=== PATIENT | female | born 1980 | race Caucasian/White ===

== ENCOUNTER 2016-05-15 23:26 | Emergency (ER) | payer OTHER ==
[~2016-05-15] VITALS: Ht 167.6 cm; Wt 68.5 kg
[~2016-05-15 23:26] MED LIST: ALPRAZOLAM0.5 MG PO; AMBIEN5 MG PO; AMOXICILLIN500 MG PO; CIPRO500 MG PO; CLINDAMYCIN HC300 MG PO; DIFLUCAN150 MG PO; FLEXERIL10 MG PO; LANTUS 10100 UNITS/ SC; LEVEMIR100 UNIT/2 SC; LEXAPRO10 MG PO; METHADONE1 MG/1 ML PO; METHADONE10 MG/1 M1 PO; METRONIDAZOLE500 MG PO; MOBIC7.5 MG PO; MOTRIN800 MG PO; NAPROSYN500 MG PO; NICOTINE PATCH1 EAC2 TD; NOVOLIN,HU100 UNITS/ SC; NOVOLOG 10100 UNITS/ SC; NOVOLOG PE100 UNITS/ SC; PERCOCET 5/31 TABLET PO; SUBOXONE 8 MG-1 EAC2 SL; TOUJEO SOL300 UNIT/1 SC; TYLENOL EXTRA500 MG PO; TYLENOL WITH C1 EACH PO; ULTRAM50 MG PO; VALIUM5 MG PO; VENTOLIN HFA18 GM IH; VICOPROFEN1 TABLET PO
[2016-05-15 23:38] VITALS: BP 127/86
[2016-05-16 10:32] LABS: POINT-OF-CARE METER ID UU13113778
== END 2016-05-16 00:16 | disposition left against medical advice (07) ==
LOC: EME 23:26
PROVIDERS: Nurse Practitioner Family
DX: E11.65 Type 2 diabetes mellitus with hyperglycemia (principal); Z53.21 Procedure and treatment not carried out due to patient leaving prior to being seen by health care provider; F17.200 Nicotine dependence, unspecified, uncomplicated
CPT/HCPCS: 80048; 82948; 85027

== ENCOUNTER 2016-06-07 05:02 | Emergency (ER) | payer OTHER ==
[~2016-06-07] VITALS: Ht 167.6 cm; Wt 78.3 kg
[2016-06-07 05:20] LABS: POINT-OF-CARE METER ID UU13113702
[2016-06-07 05:53] LABS: HEMATOCRIT 39.9 % (36.0-46.0); MCH 27.3 PG (29.0-34.0); MCHC 32.8 G/DL (30.0-36.0); MCV 83.3 FL (83-99); MEAN PLAT.VOLUME 9.4 uM^3 (9.5-12.4); PLATELET COUNT 294 K/uL (156-360); RBC DIS.WIDTH-CV 14.2 % (11.8-14.6); RBC DIS.WIDTH-SD 42.3 % (39-53); RED BLOOD COUNT 4.79 M/uL (3.80-5.20)
[2016-06-07 06:06] LABS: CHLORIDE 109 mEq/L (99-109); SODIUM 138 mEq/L (136-147)
[2016-06-07 06:07] LABS: GLUCOSE 212 mg/dL (70-99)
[2016-06-07 06:09] LABS: ANION GAP 9 MEQ/L (2-14)
[2016-06-07 06:11] LABS: GFR ESTIMATE (CALCULATED) > 59 mL/min/
[2016-06-07 06:12] LABS: UREA NITROGEN (BUN) 16 mg/dL (9-23)
[2016-06-07 07:16] VITALS: BP 131/71
== END 2016-06-07 07:43 | disposition home or self-care (01) ==
LOC: EME → EDBD 05:02 → EME 07:43
PROVIDERS: Emergency Medicine
DX: E10.649 Type 1 diabetes mellitus with hypoglycemia without coma (principal); Z79.4 Long term (current) use of insulin; F17.200 Nicotine dependence, unspecified, uncomplicated; F11.99 Opioid use, unspecified with unspecified opioid-induced disorder
CPT/HCPCS: 80048; 82948; 85027; 99281; 99285

== ENCOUNTER 2016-07-13 10:43 | Emergency (ER) | payer OTHER ==
[~2016-07-13] VITALS: Ht 167.6 cm; Wt 75.0 kg
[2016-07-13] MEDS ORDERED: CLEOCIN300 MG PO (12:07)
[2016-07-13 12:30] VITALS: BP 134/75
== END 2016-07-13 12:35 | disposition home or self-care (01) ==
LOC: EME 10:43
PROC: 0Y9K3ZZ Drainage of Right Ankle Region, Percutaneous Approach (ICD-10-PCS; principal; 2016-07-13)
DX: L02.415 Cutaneous abscess of right lower limb (principal); L03.115 Cellulitis of right lower limb; E11.9 Type 2 diabetes mellitus without complications; Z79.4 Long term (current) use of insulin; Z86.14 Personal history of Methicillin resistant Staphylococcus aureus infection; F17.200 Nicotine dependence, unspecified, uncomplicated
CPT/HCPCS: 99281; 99284

== ENCOUNTER 2016-08-02 11:49 | Inpatient (IN) | payer OTHER ==
[2016-08-02] VITALS (8 sets, daily range): BP systolic 127–143; BP diastolic 53–78
[~2016-08-02] VITALS: Ht 167.6 cm; Wt 61.2 kg
[~2016-08-02 11:49] MED LIST changes: +CLEOCIN300 MG PO
[2016-08-02 12:35] LABS: HEMATOCRIT 50.9 % (36.0-46.0); MCH 26.2 PG (29.0-34.0); MCHC 30.1 G/DL (30.0-36.0); MCV 87.3 FL (83-99); PLATELET COUNT 620 K/uL (156-360); RBC DIS.WIDTH-CV 13.4 % (11.8-14.6); RBC DIS.WIDTH-SD 43.1 % (39-53); RED BLOOD COUNT 5.83 M/uL (3.80-5.20); VENOUS PCO2 < 19 mm Hg (41-51); WHITE BLOOD COUNT 22.1 K/uL (4.1-10.2)
[2016-08-02 12:45] LABS: CHLORIDE 96 mEq/L (99-109); SODIUM 131 mEq/L (136-147)
[2016-08-02 12:47] LABS: POTASSIUM 6.7 mEq/L (3.7-5.4)
[2016-08-02 12:48] LABS: ANION GAP 33 MEQ/L (2-14); GLUCOSE 711 mg/dL (70-99)
[2016-08-02 12:51] LABS: GFR ESTIMATE (CALCULATED) 23 mL/min/
[2016-08-02 12:52] LABS: UREA NITROGEN (BUN) 27 mg/dL (9-23)
[2016-08-02 12:53] LABS: CARBON DIOXIDE (BICARBONATE) < 5.0 mEq/L (20-31)
[2016-08-02 13:38] LABS: Estimated Average Glucose 326 mg/dL (70-123)
[2016-08-02 13:55] LABS: ADD MIUA? YES; BILIRUBIN NEGATIVE; BLOOD SMALL; COLOR STRAW ((YELLOW)); GLUCOSE (STRIP) >=500; KETONES 80; LEUKOCYTES NEGATIVE; NITRITE NEGATIVE; PROTEIN (STRIP) 100; SPECIFIC GRAVITY 1.016 (1.000-1.030); UROBILINOGEN 0.2 MG/DL (0.2-1.0)
[2016-08-02 14:21] LABS: BACTERIA RARE /HPF; EPITHELIAL CELLS RARE /HPF; HYALINE CASTS 0-5 /LPF; MUCUS TRACE /LPF; RED BLOOD CELLS 0-5 /HPF (0-5); UCUL ADDED? NO; WHITE BLOOD CELLS 0-5 /HPF (0-5)
[2016-08-02 14:27] LABS: COCAINE PRESUMPTIVE POSITIVE (150 ng/mL); METHAMPHETAMINE NEGATIVE (500 ng/mL); OPIATES (MORPHINE) PRESUMPTIVE POSITIVE (100 ng/mL); PHENCYCLIDINE NEGATIVE (25 ng/mL); THC CANNABINOIDS NEGATIVE (50 ng/mL)
[2016-08-02 14:28] LABS: ADD MEDTOX COMMENT Y; AMPHETAMINE NEGATIVE (500 ng/mL); BARBITURATES NEGATIVE (200 ng/mL); BENZODIAZEPINES NEGATIVE (150 ng/mL); INTERNAL CONTROLS VALID? YES; METHADONE PRESUMPTIVE POSITIVE (200 ng/mL); OXYCODONE NEGATIVE (100 ng/mL); PROPOXYPHENE NEGATIVE (300 ng/mL); TRICYCLIC ANTIDEPRESSANTS NEGATIVE (300 ng/mL)
[2016-08-02 15:24] LABS: POINT-OF-CARE METER ID UU13113702
[2016-08-02 17:32] LABS: POTASSIUM 5.9 mEq/L (3.7-5.4)
[2016-08-02 17:33] LABS: GLUCOSE 368 mg/dL (70-99)
[2016-08-02 17:34] LABS: CHLORIDE 112 mEq/L (99-109); SODIUM 139 mEq/L (136-147)
[2016-08-02 17:35] LABS: ANION GAP 24 MEQ/L (2-14)
[2016-08-02 17:38] LABS: UREA NITROGEN (BUN) 22 mg/dL (9-23)
[2016-08-02 17:46] LABS: GFR ESTIMATE (CALCULATED) 34 mL/min/
[2016-08-02 18:18] LABS: METH RESISTANT S AUREUS PCR NEGATIVE (NEGATIVE)
[2016-08-02 18:26] LABS: PROBE CHECK PASS; SPECIMEN PROCESSING CONTROL PASS
[2016-08-02 20:54] LABS: ANION GAP 24 MEQ/L (2-14); CHLORIDE 111 MEQ/L (99-109); GFR ESTIMATE (CALCULATED) 54 mL/min/; GLUCOSE 272 mg/dL (70-99); POTASSIUM 5.2 MEQ/L (3.7-5.4); SAMPLE HEMOLYSIS CHECK 0; SAMPLE ICTERIC CHECK 0; SAMPLE LIPEMIA CHECK 0; SODIUM 140 MEQ/L (136-147); UREA NITROGEN (BUN) 20 mg/dL (9-23)
[2016-08-03] VITALS (17 sets, daily range): BP systolic 111–149; BP diastolic 48–91
[2016-08-03 00:06] LABS: BASOPHIL COUNT 0.1 K/uL (0-0.1); EOSINOPHIL (%) 0 % (0-5); IMMATURE GRANULOCYTE (%) 1.1 % (0.0-0.7); IMMATURE GRANULOCYTE COUNT 0.3 K/uL; INSTRUMENT ABS NEUTROPHIL CT 18.7 K/uL; LYMPHOCYTE COUNT 2.1 K/uL (1.0-2.8); MONOCYTE (%) 4.5 % (3-12); NEUTROPHIL (%) 84.5 % (45-76); NEUTROPHIL COUNT 18.7 K/uL (1.8-6.4)
[2016-08-03 00:55] LABS: CHLORIDE 116 mEq/L (99-109); POTASSIUM 5.3 mEq/L (3.7-5.4); SODIUM 138 mEq/L (136-147)
[2016-08-03 00:57] LABS: GLUCOSE 189 mg/dL (70-99)
[2016-08-03 00:59] LABS: ANION GAP 15 MEQ/L (2-14)
[2016-08-03 01:01] LABS: GFR ESTIMATE (CALCULATED) 39 mL/min/
[2016-08-03 01:02] LABS: UREA NITROGEN (BUN) 17 mg/dL (9-23)
[2016-08-03 01:48] LABS: POINT-OF-CARE METER ID UU14162636
[2016-08-03 03:52] LABS: POINT-OF-CARE METER ID UU14162636
[2016-08-03 04:45] LABS: CHLORIDE 115 mEq/L (99-109); POTASSIUM 3.9 mEq/L (3.7-5.4); SODIUM 139 mEq/L (136-147)
[2016-08-03 04:46] LABS: GLUCOSE 192 mg/dL (70-99)
[2016-08-03 04:48] LABS: ANION GAP 10 MEQ/L (2-14)
[2016-08-03 04:50] LABS: GFR ESTIMATE (CALCULATED) 50 mL/min/
[2016-08-03 04:51] LABS: UREA NITROGEN (BUN) 16 mg/dL (9-23)
[2016-08-03 05:59] LABS: POINT-OF-CARE METER ID UU14162636
[2016-08-03 08:51] LABS: ANION GAP 9 MEQ/L (2-14); CHLORIDE 111 MEQ/L (99-109); GFR ESTIMATE (CALCULATED) > 59 mL/min/; GLUCOSE 142 mg/dL (70-99); POTASSIUM 3.7 MEQ/L (3.7-5.4); SAMPLE HEMOLYSIS CHECK 0; SAMPLE ICTERIC CHECK 0; SAMPLE LIPEMIA CHECK 0; SODIUM 138 MEQ/L (136-147); UREA NITROGEN (BUN) 15 mg/dL (9-23)
[2016-08-03 09:56] LABS: POINT-OF-CARE METER ID UU13113778
[2016-08-03 09:56] LABS: POINT-OF-CARE METER ID UU13113702
[2016-08-03 10:26] LABS: POINT-OF-CARE METER ID UU14162636
[2016-08-03 11:28] LABS: POINT-OF-CARE METER ID UU14162636
[2016-08-03 13:25] LABS: ANION GAP 6 MEQ/L (2-14); CHLORIDE 110 MEQ/L (99-109); GFR ESTIMATE (CALCULATED) > 59 mL/min/; GLUCOSE 167 mg/dL (70-99); POTASSIUM 3.7 MEQ/L (3.7-5.4); SAMPLE HEMOLYSIS CHECK 0; SAMPLE ICTERIC CHECK 0; SAMPLE LIPEMIA CHECK 0; SODIUM 135 MEQ/L (136-147); UREA NITROGEN (BUN) 13 mg/dL (9-23)
[2016-08-03 17:41] LABS: POINT-OF-CARE USER ID 606021424
[2016-08-03 21:46] LABS: POINT-OF-CARE METER ID UU13113731
[2016-08-04] VITALS: BP 139/82
[2016-08-04 04:00] VITALS: BP 116/65
[2016-08-04 08:00] VITALS: BP 132/82
[2016-08-04 08:20] LABS: POINT-OF-CARE METER ID UU13113803
[2016-08-04] MEDS ORDERED: METHADONE1 MG/1 ML PO (10:21)
[2016-08-04] MEDS ORDERED: NICOTINE PATCH1 EAC2 TD ×2 (10:23→14:01)
[2016-08-04] MEDS ORDERED: NOVOLOG PE100 UNITS/ SC (10:25)
[2016-08-04] MEDS ORDERED: VENTOLIN HFA18 GM IH ×2 (10:26→14:01)
[2016-08-04] MEDS ORDERED: LANTUS 3 M100 UNITS1 SC (10:27)
[2016-08-04] MEDS ORDERED: NOVOLOG 10100 UNITS/ SC ×2 (10:31→10:35)
[2016-08-04] MEDS ORDERED: LANTUS 10100 UNITS/ SC (10:32)
[2016-08-04] MEDS ORDERED: HYDROXYZINE HCL25 MG PO (10:36)
[2016-08-04] MEDS ORDERED: GABAPENTIN300 MG PO (10:37)
[2016-08-04 10:58] LABS: ANION GAP 9 MEQ/L (2-14); CHLORIDE 106 MEQ/L (99-109); GFR ESTIMATE (CALCULATED) > 59 mL/min/; GLUCOSE 141 mg/dL (70-99); POTASSIUM 3.4 MEQ/L (3.7-5.4); SAMPLE HEMOLYSIS CHECK 0; SAMPLE ICTERIC CHECK 0; SAMPLE LIPEMIA CHECK 0; SODIUM 139 MEQ/L (136-147); UREA NITROGEN (BUN) 10 mg/dL (9-23)
[2016-08-04 12:00] VITALS: BP 128/70
[2016-08-04 12:16] LABS: POINT-OF-CARE METER ID UU13113803
[2016-08-04 12:22] LABS: HEMATOCRIT 36.5 % (36.0-46.0); MCH 25.9 PG (29.0-34.0); MCHC 33.2 G/DL (30.0-36.0); RBC DIS.WIDTH-CV 13.6 % (11.8-14.6); RBC DIS.WIDTH-SD 38.6 % (39-53)
[2016-08-04 12:30] LABS: RED BLOOD COUNT 4.68 M/uL (3.80-5.20); WHITE BLOOD COUNT 7.5 K/uL (4.1-10.2)
[2016-08-04 12:41] LABS: MEAN PLAT.VOLUME 9.5 uM^3 (9.5-12.4); PLAT.SUFFICIENCY ADEQUATE
[2016-08-04 12:43] LABS: PLATELET COUNT 233 K/uL (156-360)
== END 2016-08-04 14:15 | disposition home or self-care (01) | DRG 638 ==
LOC: EME 11:49 → 4WEST 14:08 → EDOF 14:08 → 4WEST 15:53
PROVIDERS: Emergency Medicine; Internal Medicine; Internal Medicine Pulmonary Disease
PROC: 06HM33Z Insertion of Infusion Device into Right Femoral Vein, Percutaneous Approach (ICD-10-PCS; principal; 2016-08-02)
DX: E10.10 Type 1 diabetes mellitus with ketoacidosis without coma (principal); F17.200 Nicotine dependence, unspecified, uncomplicated; F14.10 Cocaine abuse, uncomplicated; E87.5 Hyperkalemia; N17.9 Acute kidney failure, unspecified; F32.9 Major depressive disorder, single episode, unspecified; F90.1 Attention-deficit hyperactivity disorder, predominantly hyperactive type; Z79.4 Long term (current) use of insulin; Z91.14 Patient's other noncompliance with medication regimen; E86.0 Dehydration
CPT/HCPCS: 80048; 80048 91; 81003; 82010; 82803; 82948; 83036; 84100; 84999; 85025; 85027; 87040; 87641; 93005; 99281; 99285; J1815; J2405; J3480; J7030; J7050

== ENCOUNTER 2017-06-05 10:00 | Emergency (ER) | payer OTHER ==
[~2017-06-05] VITALS: Ht 167.6 cm; Wt 80.2 kg
[~2017-06-05 10:00] MED LIST changes: +GABAPENTIN300 MG PO; +HYDROXYZINE HCL25 MG PO; +LANTUS 3 M100 UNITS1 SC
[2017-06-05 10:40] LABS: HEMATOCRIT 43.8 % (36.0-46.0); HEMOGLOBIN 14.9 G/DL (11.9-15.5); MCV 82.3 FL (83-99); PLATELET COUNT 410 K/uL (156-360); RBC DIS.WIDTH-CV 13.2 % (11.8-14.6); RBC DIS.WIDTH-SD 39.1 % (39-53); RED BLOOD COUNT 5.32 M/uL (3.80-5.20); WHITE BLOOD COUNT 9.9 K/uL (4.1-10.2)
[2017-06-05 10:51] LABS: ALBUMIN 4.3 g/dL (3.2-4.8)
[2017-06-05 10:52] LABS: CHLORIDE 109 mEq/L (99-109); SODIUM 140 mEq/L (136-147)
[2017-06-05 10:54] LABS: TOTAL PROTEIN 7.8 g/dL (6.4-8.3)
[2017-06-05 10:55] LABS: APPEARANCE SL.HAZY ((CLEAR)); BILIRUBIN NEGATIVE; BLOOD NEGATIVE; COLOR YELLOW ((YELLOW)); GLUCOSE (STRIP) 50; KETONES NEGATIVE; LEUKOCYTES NEGATIVE; NITRITE NEGATIVE; PROTEIN (STRIP) NEGATIVE; SPECIFIC GRAVITY 1.027 (1.000-1.030); UROBILINOGEN 0.2 MG/DL (0.2-1.0)
[2017-06-05 10:56] LABS: TOTAL BILIRUBIN 0.5 mg/dL (0.0-1.0)
[2017-06-05 10:57] LABS: ALKALINE PHOSPHATASE 151 IU/L (3-129)
[2017-06-05 10:58] LABS: CREATININE 0.7 mg/dL (0.6-1.3); GFR ESTIMATE (CALCULATED) > 59 mL/min/
[2017-06-05 10:59] LABS: AST (GOT) 8 IU/L (2-34); UREA NITROGEN (BUN) 12 mg/dL (9-23)
[2017-06-05 11:01] LABS: ALT (GPT) 11 IU/L (3-49)
[2017-06-05 11:07] LABS: QUANTITATIVE HCG < 4.0 MIU/ML
[2017-06-05 11:08] LABS: BACTERIA RARE /HPF; EPITHELIAL CELLS 1+ /HPF; HYALINE CASTS 0-5 /LPF; MUCUS TRACE /LPF; RED BLOOD CELLS 0-5 /HPF (0-5); UCUL ADDED? NO; WHITE BLOOD CELLS 0-5 /HPF (0-5)
[2017-06-05 11:09] LABS: GLUCOSE 34 mg/dL (70-99)
[2017-06-05 12:00] LABS: SOURCE SWAB
[2017-06-05] MEDS ORDERED: FLAGYL500 MG PO (15:07)
[2017-06-05] MEDS ORDERED: NORCO 5/3251 TABLET PO (15:07)
[2017-06-05 15:32] VITALS: BP 147/76
== END 2017-06-05 15:33 | disposition home or self-care (01) ==
LOC: EME 10:00
PROVIDERS: Physician Assistant
DX: R10.2 Pelvic and perineal pain (principal); N83.202 Unspecified ovarian cyst, left side; E11.9 Type 2 diabetes mellitus without complications; F32.9 Major depressive disorder, single episode, unspecified; Z79.4 Long term (current) use of insulin; F17.200 Nicotine dependence, unspecified, uncomplicated
CPT/HCPCS: 76856; 80053; 81003; 82948; 84702; 85027; 87210; 87491; 87591; 99281; 99284; J1885; J2270

== ENCOUNTER 2017-06-07 09:41 | Inpatient (IN) | payer OTHER ==
[~2017-06-07] VITALS: Ht 167.6 cm; Wt 78.0 kg
[~2017-06-07 09:41] MED LIST changes: +FLAGYL500 MG PO; +NORCO 5/3251 TABLET PO
[2017-06-07] MEDS ORDERED: TOUJEO SOL300 UNIT/1 SC (10:37)
[2017-06-07 10:50] VITALS: BP 130/66
[2017-06-07 16:36] VITALS: BP 113/55
[2017-06-07 19:32] VITALS: BP 112/64
[2017-06-07 23:31] VITALS: BP 128/65
[2017-06-08 00:21] LABS: ALBUMIN 3.5 g/dL (3.2-4.8)
[2017-06-08 00:22] LABS: CHLORIDE 100 mEq/L (99-109)
[2017-06-08 00:24] LABS: SODIUM 132 mEq/L (136-147); TOTAL PROTEIN 5.9 g/dL (6.4-8.3)
[2017-06-08 00:26] LABS: TOTAL BILIRUBIN 0.6 mg/dL (0.0-1.0)
[2017-06-08 00:28] LABS: GFR ESTIMATE (CALCULATED) > 59 mL/min/
[2017-06-08 00:29] LABS: ALKALINE PHOSPHATASE 290 IU/L (3-129); AST (GOT) 65 IU/L (2-34); UREA NITROGEN (BUN) 12 mg/dL (9-23)
[2017-06-08 00:36] LABS: ALT (GPT) 82 IU/L (3-49)
[2017-06-08 00:37] LABS: GLUCOSE 456 mg/dL (70-99)
[2017-06-08 03:30] VITALS: BP 124/63
[2017-06-08 05:35] LABS: BASOPHIL (%) 0.1 % (0-1); EOSINOPHIL (%) 0 % (0-5); IMMATURE GRANULOCYTE (%) 0.5 % (0.0-0.7); LYMPHOCYTE COUNT 1.7 K/uL (1.0-2.8); MCH 27.8 PG (29.0-34.0); MCHC 33.3 G/DL (30.0-36.0); MCV 83.5 FL (83-99); MONOCYTE (%) 7.3 % (3-12); NEUTROPHIL (%) 80.1 % (45-76); NEUTROPHIL COUNT 11.3 K/uL (1.8-6.4); PLATELET COUNT 364 K/uL (156-360); RBC DIS.WIDTH-SD 39.5 % (39-53); RED BLOOD COUNT 4.31 M/uL (3.80-5.20); WHITE BLOOD COUNT 14.1 K/uL (4.1-10.2)
[2017-06-08 05:55] LABS: CHLORIDE 104 MEQ/L (99-109); CREATININE 0.7 MG/DL (0.6-1.3); GFR ESTIMATE (CALCULATED) > 59 mL/min/; POTASSIUM 4.1 MEQ/L (3.7-5.4); SODIUM 138 MEQ/L (136-147); UREA NITROGEN (BUN) 9 mg/dL (9-23)
[2017-06-08 05:57] LABS: GLUCOSE 148 mg/dL (70-99)
[2017-06-08 07:08] VITALS: BP 114/64
[2017-06-08] MEDS ORDERED: METFORMIN HCL500 M1 PO (11:06)
[2017-06-08 11:32] VITALS: BP 114/77
[2017-06-08 15:20] VITALS: BP 130/77
[2017-06-08 19:14] VITALS: BP 127/73
[2017-06-09] VITALS: BP 128/57
[2017-06-09 04:29] VITALS: BP 110/58
[2017-06-09 07:43] VITALS: BP 132/84
[2017-06-09] MEDS ORDERED: ENDOCET 5-3251 EACH PO (08:51)
[2017-06-09] MEDS ORDERED: DIFLUCAN150 MG PO (08:55)
[2017-06-09] MEDS ORDERED: MOTRIN800 MG PO (08:55)
[2017-06-09] MEDS ORDERED: AUGMENTIN875 MG PO (09:03)
== END 2017-06-09 10:15 | disposition home or self-care (01) | DRG 743 ==
LOC: SDC 09:41 → 2EAST 14:23 → 2SOUTH 14:23 → ENRESERV 14:26 → 2EAST 16:18
PROVIDERS: Obstetrics & Gynecology
DX: N70.93 Salpingitis and oophoritis, unspecified (principal); N83.292 Other ovarian cyst, left side; E11.65 Type 2 diabetes mellitus with hyperglycemia; Z79.4 Long term (current) use of insulin; N92.6 Irregular menstruation, unspecified; F17.200 Nicotine dependence, unspecified, uncomplicated; Z98.51 Tubal ligation status; Z80.49 Family history of malignant neoplasm of other genital organs; Z82.3 Family history of stroke; Z82.49 Family history of ischemic heart disease and other diseases of the circulatory system; Z83.3 Family history of diabetes mellitus
CPT/HCPCS: 76856; 80048; 80053; 80170; 81003; 82948; 84702; 85025; 85027; 86850; 86900; 86901; 87070; 87075; 87077; 87186; 87205; 87210; 87480; 87491; 87510; 87591; 87660; 88175 90; 88305; 93005; 94640; 99202; 99281; 99284; J0131; J0290; J0690; J1100; J1170; J1580; J1815; J1885; J2250; J2270; J2405; J2710; J3010; J7050; J7120; Q0177; S0020

== ENCOUNTER 2017-09-02 19:28 | Emergency (ER) | payer OTHER ==
[~2017-09-02] VITALS: Ht 167.6 cm; Wt 77.1 kg
[~2017-09-02 19:28] MED LIST changes: +AUGMENTIN875 MG PO; +ENDOCET 5-3251 EACH PO; +METFORMIN HCL500 M1 PO
[2017-09-02 20:14] LABS: HEMATOCRIT 38.2 % (36.0-46.0); HEMOGLOBIN 13.2 G/DL (11.9-15.5); MCH 27.4 PG (29.0-34.0); MCHC 34.6 G/DL (30.0-36.0); MCV 79.4 FL (83-99); PLATELET COUNT 363 K/uL (156-360); RBC DIS.WIDTH-CV 13.4 % (11.8-14.6); RBC DIS.WIDTH-SD 38.5 % (39-53); RED BLOOD COUNT 4.81 M/uL (3.80-5.20); WHITE BLOOD COUNT 21.2 K/uL (4.1-10.2)
[2017-09-02] MEDS ORDERED: AMOXICILLIN500 MG PO (20:38)
[2017-09-02] MEDS ORDERED: ACETAMINOPHEN-1 EAC1 PO (20:38)
[2017-09-02 21:47] LABS: APPEARANCE SL.HAZY ((CLEAR)); BILIRUBIN NEGATIVE; BLOOD NEGATIVE; COLOR YELLOW ((YELLOW)); GLUCOSE (STRIP) 50; KETONES 5; LEUKOCYTES NEGATIVE; NITRITE NEGATIVE; PROTEIN (STRIP) 30; SPECIFIC GRAVITY 1.017 (1.000-1.030); UROBILINOGEN 0.2 MG/DL (0.2-1.0)
[2017-09-02 21:51] VITALS: BP 145/98
[2017-09-02 21:55] LABS: BACTERIA NONE SEEN /HPF; EPITHELIAL CELLS 1+ /HPF; MUCUS NONE SEEN /LPF; RED BLOOD CELLS 0-5 /HPF (0-5); WHITE BLOOD CELLS 0-5 /HPF (0-5)
[2017-09-02 21:59] LABS: AMPHETAMINE NEGATIVE (500 ng/mL); BARBITURATES NEGATIVE (200 ng/mL); BENZODIAZEPINES NEGATIVE (150 ng/mL); BUPRENORPHINE NEGATIVE (10 ng/mL); COCAINE NEGATIVE (150 ng/mL); METHADONE NEGATIVE (200 ng/mL); METHAMPHETAMINE NEGATIVE (500 ng/mL); OPIATES (MORPHINE) PRESUMPTIVE POSITIVE (100 ng/mL); OXYCODONE NEGATIVE (100 ng/mL); PHENCYCLIDINE NEGATIVE (25 ng/mL); PROPOXYPHENE NEGATIVE (300 ng/mL); THC CANNABINOIDS PRESUMPTIVE POSITIVE (50 ng/mL); TRICYCLIC ANTIDEPRESSANTS NEGATIVE (300 ng/mL)
== END 2017-09-02 21:52 | disposition left against medical advice (07) ==
LOC: EME → EDBD 19:28 → EME 21:52
PROVIDERS: Emergency Medicine
DX: K08.89 Other specified disorders of teeth and supporting structures (principal); E11.649 Type 2 diabetes mellitus with hypoglycemia without coma; Z79.4 Long term (current) use of insulin; D72.829 Elevated white blood cell count, unspecified; F32.9 Major depressive disorder, single episode, unspecified; F90.9 Attention-deficit hyperactivity disorder, unspecified type; F17.200 Nicotine dependence, unspecified, uncomplicated
CPT/HCPCS: 80053; 81003; 82800; 82948; 83690; 83930; 84702; 84999; 85027; 99281; 99284; G0480